=== PATIENT | female | born 1970 | race Caucasian/White ===

== ENCOUNTER 2017-02-04 17:15 | Emergency (ER) | payer BC, OTHER ==
[2017-02-04 17:33] VITALS: BP 139/79
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
== END 2017-02-04 18:20 | disposition home or self-care (01) ==
LOC: UCEAST 17:15
DX: R10.30 Lower abdominal pain, unspecified (principal); R73.03 Prediabetes; Z88.8 Allergy status to other drugs, medicaments and biological substances
CPT/HCPCS: 99211; G0463

== ENCOUNTER 2017-02-04 18:53 | Emergency (ER) | payer OTHER ==
[2017-02-04 21:48] LABS: Hematocrit 39 % (35-47); Mean Corpuscular HGB Conc 33 g/dl (31-36); Mean Corpuscular Hemoglobin 28 pg (27-31); Mean Corpuscular Volume 86 fL (80-97); Mean Platelet Volume 8 um3 (7.4-10.4); Red Cell Distribution Width 13 % (10.5-15); White Blood Count 6.8 10^3/ul (3.5-10.8)
[2017-02-04 22:04] LABS: ALT 7 U/L (7-52); AST 10 U/L (13-39); Alkaline Phosphatase 52 U/L (34-104); Amylase 34 U/L (29-103); Anion Gap 6 mmol/L (2-11); BUN/Creatinine Ratio 18.5 (8-20); Blood Urea Nitrogen 15 mg/dL (6-24); C Reactive Protein 4.59 mg/L (< 5.00); CO2 Carbon Dioxide 26 mmol/L (22-32); Calcium 8.7 mg/dL (8.6-10.3); Chloride 104 mmol/L (101-111); Creatine Kinase 44 U/L (10-223); EGFR African American 97.5 (>60); EGFR Non-African American 75.8 (>60); Globulin 2.8 g/dL (2-4); Glucose 92 mg/dL (70-100); Lipase 18 U/L (11.0-82.0); Potassium 3.8 mmol/L (3.5-5.0); Sodium 136 mmol/L (133-145); Total Protein 6.8 g/dL (6.4-8.9)
[2017-02-04 22:18] LABS: Urine Bacteria Absent (Absent); Urine Bilirubin Negative (Negative); Urine Glucose Negative (Negative); Urine Nitrite Negative (Negative)
[2017-02-05] MEDS ORDERED: Iodixanol* (CONTRAST) 320 MG/ML 100 ML SDV IV ONE (00:13)
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
[2017-02-05] MEDS ORDERED: Ibuprofen TAB* 600 MG ONE (01:39)
[2017-02-05] MEDS ORDERED: Ibuprofen TAB* 600 MG PO ONE (01:40)
[2017-02-05 02:25] VITALS: BP 146/87
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
== END 2017-02-05 02:28 | disposition home or self-care (01) ==
LOC: ED 18:53
DX: R10.13 Epigastric pain (principal); V89.2XXA Person injured in unspecified motor-vehicle accident, traffic, initial encounter; Y92.9 Unspecified place or not applicable; R73.03 Prediabetes; R16.0 Hepatomegaly, not elsewhere classified; N83.202 Unspecified ovarian cyst, left side; N83.201 Unspecified ovarian cyst, right side
CPT/HCPCS: 36415; 74177; 80053; 81003; 81015; 82150; 82550; 83605; 83690; 84484; 84702; 85025; 86140; 96374; 99284; A9270-GY; Q9967

== ENCOUNTER 2019-06-07 19:00 | Emergency (ER) | payer BC, OTHER ==
--- NOTE | 2019-06-07 19:09 | UC ---
FLU HPI - HPI Summary HPI Summary: 4 days ago began with head ache body aches and fever now has chest congestion and bronchial cough - History of Current Complaint Chief Complaint: UCRespiratory Stated Complaint: CONGESTION AND FEVER Time Seen by Provider: 06/07/19 19:06 Hx Obtained From: Patient Hx Last Menstrual Period: 01/21/17 ?: No Onset/Duration: Sudden Onset, Lasting Days - 4 Severity Currently: Moderate Severity Initially: Moderate Associated Signs & Symptoms: Positive: Fever, Cough, Headache Related Hx: Possible Flu/Infectious Exposure - Allergy/Home Medications Allergies/Adverse Reactions: Allergies Allergy/AdvReac Type Severity Reaction Status Date / Time omeprazole Allergy Hives Verified 06/07/19 19:15 Home Medications: Home Medications guaiFENesin [Mucinex] 600 mg PO Q12H PRN 06/07/19 [History Confirmed 06/07/19] PMH/Surg Hx/FS Hx/Imm Hx Previously Healthy: Yes - Surgical History Surgical History: Yes Surgery Procedure, Year, and Place: Hernia Repair. Foot. Bone Spur hip. C- Section - Family History Known Family History: Positive: Diabetes - Social History Occupation: Employed Full-time - delivery director Lives: With Family Alcohol Use: Rare Substance Use Type: None Smoking Status (MU): Never Smoked Tobacco Review of Systems All Other Systems Reviewed And Are Negative: Yes Constitutional: Positive: Fever, Chills, Fatigue Skin: Positive: Negative Eyes: Positive: Negative ENT: Positive: Negative Respiratory: Positive: Cough Cardiovascular: Positive: Negative Gastrointestinal: Positive: Negative Genitourinary: Positive: Negative Motor: Positive: Negative Neurovascular: Positive: Negative Musculoskeletal: Positive: Arthralgia Neurological: Positive: Headache Psychological: Positive: Negative Is Patient Immunocompromised?: No Physical Exam Triage Information Reviewed: Yes Appearance: Ill-Appearing - mild, Pain Distress - mild, Obese Vital Signs Reviewed: Yes Eye Exam: Normal Eyes: Positive: Conjunctiva Clear ENT Exam: Normal ENT: Positive: Normal ENT inspection, Hearing grossly normal, Pharynx normal, TMs normal, Uvula midline. Negative: Nasal congestion, Tonsillar swelling, Tonsillar exudate, Trismus, Muffled voice, Hoarse voice, Sinus tenderness Dental Exam: Normal Neck exam: Normal Neck: Positive: Supple, Nontender, No Lymphadenopathy Respiratory Exam: Normal Respiratory: Positive: Chest non-tender, Lungs clear, Normal breath sounds, No respiratory distress, No accessory muscle use Cardiovascular Exam: Normal Cardiovascular: Positive: RRR, No Murmur, Pulses Normal, Brisk Capillary Refill Musculoskeletal Exam: Normal Musculoskeletal: Positive: Strength Intact, ROM Intact, No Edema Neurological Exam: Normal Neurological: Positive: Alert, Muscle Tone Normal Psychological Exam: Normal Skin Exam: Normal Diagnostics - Laboratory Lab Results: Influenza B + Flu Course/Dx - Course Course Of Treatment: rest increase fluids tylenol, ibuprofen for pain/fever otc medications for symptom relief--home from work 4 more days follow BP with pcp - Differential Dx/Diagnosis Provider Diagnosis: Influenza B, Hypertension Discharge ED - Sign-Out/Discharge Documenting (check all that apply): Patient Departure All imaging exams completed and their final reports reviewed: No Studies - Discharge Plan Condition: Stable Disposition: HOME Patient Education Materials: Influenza (ED), Hypertension (ED) Forms: *Work Release Referrals: Jovanna Panda MD [Primary Care Provider] - 1 Week - Billing Disposition and Condition Condition: STABLE Disposition: Home
[2019-06-07 19:14] VITALS: BP 160/81
[2019-06-07 19:41] LABS: Influenza B Molecular POSITIVE (Negative)
[2019-06-07] MEDS ORDERED: guaiFENesin/CODIENE 100mg/10mg 5 ML UDC PO ONE ×2 (19:52→19:55)
== END 2019-06-07 20:09 | disposition home or self-care (01) ==
LOC: UCEAST 19:00
DX: J10.1 Influenza due to other identified influenza virus with other respiratory manifestations (principal); I10 Essential (primary) hypertension; Z88.8 Allergy status to other drugs, medicaments and biological substances
CPT/HCPCS: 99212; A9270-GY; G0463